=== PATIENT | female | born 1970 | race Caucasian/White ===

== ENCOUNTER 2022-05-31 06:04 | Emergency (ER) | payer OTHER ==
[2022-05-31 06:36] LABS: EOSINOPHIL 3.3 % (0-5); HCT 44.4 % (37.0-47.0); HGB 14.5 g/dl (12.5-16.0); LYMPHOCYTE 33.7 % (15-48); MCH 29.6 pg (25.0-31.0); MCHC 32.7 g/dL (32.0-36.0); MCV 90.6 fL (78.0-100.0); MPV 9.8 fL (6.0-9.5); NEUTROPHIL 50.8 % (41-80); NRBC 0; PLT 268 K/uL (150-400); RDW 12.9 % (11.5-14.0); WBC 5.8 K/uL (4.0-10.5)
[2022-05-31 06:56] LABS: ALBUMIN 3.7 g/dL (3.4-5.0); BILIRUBIN - TOTAL 0.4 mg/dL (0.2-1.0); CREATININE 0.88 mg/dL (0.51-0.95); GLOBULIN (CALCULATION) 3.7 g/dL; POTASSIUM 3.9 mmol/L (3.5-5.1); TOTAL PROTEIN 7.4 g/dL (6.4-8.2)
[2022-05-31 07:29] LABS: BILIRUBIN NEGATIVE (NEGATIVE); BLOOD 1+ Ery/uL (NEGATIVE); CLARITY CLEAR (CLEAR); COLOR YELLOW (YELLOW); GLUCOSE (U) NORMAL (NORMAL); LEUKOCYTES NEGATIVE Leu/uL (NEGATIVE); NITRITE NEGATIVE (NEGATIVE); PROTEIN NEGATIVE (NEGATIVE)
[2022-05-31 07:48] LABS: BACTERIA TRACE; MUCOUS TRACE; URINARY WBC RARE
== END 2022-05-31 09:21 | disposition home or self-care (01) ==
LOC: FER 06:04
PROVIDERS: Emergency Medicine
DX: R20.2 Paresthesia of skin (principal); Z86.73 Personal history of transient ischemic attack (TIA), and cerebral infarction without residual deficits
CPT/HCPCS: 36415; 70450; 70544; 70548; 70551; 71045; 80053; 81001; 84484; 85025; 93005; A9579